=== PATIENT | female | born 1995 | race Caucasian/White ===

== ENCOUNTER 2018-02-21 11:56 | Observation (INO) | payer OTHER ==
[~2018-02-21] VITALS: Ht 165.1 cm; Wt 66.7 kg
[2018-02-21 12:08] VITALS: BP 141/79
[2018-02-21 13:02] LABS: CALCIUM 9.5 mg/dL (8.5-10.1); CREATININE 1.1 mg/dL (0.6-1.3); POTASSIUM 4.1 mmol/L (3.5-5.1)
[2018-02-21 13:05] LABS: ALBUMIN 4.1 g/dL (3.4-5.0); TOTAL BILIRUBIN 0.7 mg/dL (<0.1-1.0); TOTAL PROTEIN 8.1 g/dL (6.4-8.2)
[2018-02-21 13:10] LABS: ABSOLUTE BASOPHILS 0.1 thou/uL (0.0-0.2); ABSOLUTE EOSINOPHILS 0.1 thou/uL (0.0-0.7); ABSOLUTE LYMPHOCYTES 2.3 thou/uL (0.8-5.3); ABSOLUTE MONOCYTES 0.8 thou/uL (0.0-1.2); ABSOLUTE NEUTROPHILS 10.7 thou/uL (1.6-8.1); BASOPHILS 0.7 %; EOSINOPHILS 0.4 %; HEMATOCRIT 39.6 % (37.0-47.0); HEMOGLOBIN 13.2 gm/dL (12.0-15.0); LYMPHOCYTES 16.7 %; MCH 27.5 pg (26.0-34.0); MCHC 33.3 g/dL (28.0-37.0); MCV 82.6 fL (80.0-100.0); MONOCYTES 5.4 %; MPV 8.5 fl. (7.2-11.1); NUCLEATED RBCS 0 /100WBC; PLATELET COUNT* 130 thou/uL (150-400); POLYS 76.8 %; RDW-CV 12.9 % (10.5-14.5); WBC 13.9 thou/uL (4.0-11.0)
[2018-02-21 15:14] LABS: URINE BILIRUBIN NEGATIVE (Negative); URINE BLOOD NEGATIVE (Negative); URINE CLARITY CLEAR; URINE COLOR YELLOW; URINE GLUCOSE-RANDOM NEGATIVE (Negative); URINE KETONES 1+ (Negative); URINE LEUKOCYTES-REFLEX 1+ (Negative); URINE NITRITE-REFLEX NEGATIVE (Negative); URINE PROTEIN TRACE (Negative); URINE SPECIFIC GRAVITY 1.015 (1.005-1.030)
[2018-02-21 15:19] LABS: SQUAMOUS 4-10 Moderate /LPF (0-3)
[2018-02-21 15:20] LABS: BACTERIA-REFLEX None Seen /HPF (None Seen); CASTS None Seen /LPF (None Seen); CRYSTALS None Seen /LPF (None Seen); MUCUS None Seen strn/LPF (None Seen); URINE RBC 0-2 Rare /HPF (0-2); URINE WBC-REFLEX 0-5 Rare /HPF (0-5)
[2018-02-21 18:39] VITALS: BP 115/54
[2018-02-21 22:00] VITALS: BP 125/55
--- NOTE | 2018-02-21 22:48 | NUR ---
PT ARRIVED FROM PACU AT 2200. PT POT OP LAPROSCOPIC APPENDECTOMY. PT DENIES PAIN OR DISCOMFORT AT THIS TIME. PT'S FAMILY AT BEDSIDE ASSISTING WITH CARE. VITAL SIGNS WITHIN NORMAL LIMITS. CALL LIGHT IN REACH. PT DEMONSTRATED PROPER USE.
[2018-02-22 04:09] VITALS: BP 100/63
--- NOTE | 2018-02-22 07:01 | OP ---
[address] [address] OPERATIVE REPORT Name: RUBIO ALCAZAR Room: [address]RJúnior#: [id number] Admission: 02/21/18 Attend Phys: Ashlie Hernandes DO Discharge: Date of : 89 Report #: [id number] THIS REPORT FOR: //name// CC: Sam Hernandes [facility] physician/PCP DICTATED BY: Marco Soliz DO PREOPERATIVE DIAGNOSIS: Acute appendicitis. POSTOPERATIVE DIAGNOSIS: Acute appendicitis. SURGEON: Ashlie Hernandes DO RADIATION PROTECTION ENGINEER: Marco Soliz, PGY1 and Wesley Anna MS3. OPERATION PERFORMED: Laparoscopic appendectomy. ANESTHESIA: General. ESTIMATED BLOOD LOSS: 2. SPECIMENS REMOVED: Appendix. HISTORY OF PRESENT ILLNESS: The patient is a 22-year-old female presenting with complaint of right lower quadrant abdominal pain. Her pain initially began in the midepigastric area and began to become more localized over the period of time. She denied any nausea, vomiting, fevers, chills, any change in bowel habits. Last meal was around 7:00 a.m. Pain was slightly improved upon arrival to the ED. CT did confirm acute appendicitis. It was discussed with her that laparoscopic appendectomy would be recommended at this time. Risks and complications were discussed to include bleeding, infection, injury to surrounding structures, risk of needing an open procedure, risk of anesthesia. She acknowledged understanding of these risks and agreed to proceed with surgery. DESCRIPTION OF PROCEDURE: After consent was obtained, the patient was taken to the operating room. SCDs were placed on bilateral lower extremities. Ancef 2 g was given preoperatively. The patient was placed supine on the operating room table. General anesthesia was administrated and endotracheal intubation was successfully performed. The patient was then prepped and draped in the standard sterile fashion. A timeout was performed to confirm the patient and procedure. An infraumbilical incision was then made with an 11 blade scalpel. S retractors were used to bluntly dissect down to the fascia. Naldo's were used to grasp either side of the fascia and the fascia was elevated. Fascia was scored with a cautery and a Kate clamp was used to bluntly enter [place] [address] OPERATIVE REPORT Name: RUBIO ALCAZAR Room: [address]únior#: [id number] Admission: 02/21/18 Attend Phys: Ashlie Hernandes DO Discharge: Date of : 89 Report #: [id number] stitches of 0 Vicryl were placed on either side of the fascia. A 10 mm Tiom trocar was then entered into the abdomen. Insufflation was initiated successfully. Camera was then used to inspect the intra-abdominal contents. The appendix could be seen in the right lower quadrant with surrounding peritonitis. Another trocar was then placed in the suprapubic region under direct visualization and another one was placed in the left lower quadrant under direct visualization. The patient was then placed in Trendelenburg and rotated slightly to the left. Laparoscopic [place] was used to sweep the small bowel contents cephalad. The appendix was then clearly visualized coming off of the cecum. Some periappendiceal adhesions were taken down with hook cautery and hemostasis was ensured. [place] grasper was then used to create a small window into the mesoappendix just at the base of the appendix. A blue load 45 Endo-FLAVIA stapler was then inserted into the abdomen and placed across the base of the appendix, fired successfully. The appendix was regrasped and elevated and a white load Endo-FLAVIA stapler was inserted in the abdomen and stapled. The mesoappendix was then stapled successfully. The appendix was then placed into an EndoCatch bag. Staple line was inspected to ensure hemostasis and some of the insufflation was let out and again the staple line was inspected to ensure continued hemostasis. There was no evidence of any further bleeding. The suprapubic port and left lower quadrant port were removed under direct visualization. Hemostasis was ensured. Insufflation was let down and the infraumbilical trocar was removed along with the appendix in the bag. Once again, the fascia was grasped between 2 Kochers and elevated. One stitch of 0 Vicryl was placed along the fascia in a [id number] fashion. A 4-0 Monocryl was used to close all skin incisions in a subcuticular running fashion. All needle counts were correct, all sponge counts were correct and all instrument counts were correct. The patient tolerated the procedure well. Anesthesia was reversed and the patient was taken to PACU in a stable condition. <ELECTRONICALLY SIGNED> By: Ashlie Hernandes DO 02/22/18 0701 [id number] Hernandes DO /nt
--- NOTE | 2018-02-22 07:27 | NUR ---
PATIENT ARRIVED TO UNIT FROM PACU AT APPROXIMATELY 2210. PATIENT WAS ALERT AND ORIENTED. VSS ON 2L 02 VIA NASAL CANNULA. PATIENT HAS HAD NO C/O PAIN AND HAS SLEPT WELL THROUGHOUT THE NIGHT. IV IN RIGHT AC-SL. PATIENTS FATHER IS AT BEDSIDE. PATIENT INSTRUCTED TO USE CALL LIGHT WHEN NEEDING ASSISTANCE. HOURLY ROUNDS MADE. WILL CONTINUE WITH PLAN OF CARE AND NURSING TO MONITOR.
[2018-02-22 07:50] VITALS: BP 111/64
[2018-02-22] MEDS ORDERED: HYDROCODON-ACE1 EAC7 PO (09:04)
[2018-02-22 09:09] VITALS: BP 111/64
--- NOTE | 2018-02-22 11:50 | NUR ---
Pt to dc home with family support today. No dc needs or concerns expressed. SW to remain available if needed to assist with safe dc planning.
[2018-02-22 12:00] VITALS: BP 103/53
--- NOTE | 2018-02-22 14:27 | NUR ---
PATIENT A&OX4, ROOM AIR, IV RIGHT AC SALINE LOCK. IV D/C TODAY, CATHETER FULLY INTACT. UP WITH STAND BY ASSISTX1, STEADY GAIT. LAPROSCOPIC SITES REDRESSED TODAY, EDUCATION WITH PATIENT ON WHEN AND HOW DO REDRESS VERBALIZES UNDERSTANDING. REVIEWED DISCHARGE PAPERWORK WITH PATIENT WITH FAMILY MEMBER AT BEDSIDE. VERBALIZES IMPORTANCE OF PATIENT BEING ON SAME FLOOR BATHROOM AT HOME, THAT WAY NOT HAVING TO GO UP AND DOWN SEVERAL FLIGHTS OF STAIRS. PATIENT AND FAMILY VERBALIZES UNDERSTANDING WITH NO FURTHER QUESTIONS. HELPED PATIENT DRESS, ABLE TO DRESS SELF WITH NO HELP. LEFT UNIT AT 1425 VIA W/C WITH FAMILY AND NURSING STAFF ALL BELONGINGS TAKEN WITH PATIENT, NOTHING LEFT BEHIND. APPROPRIATE AND COOPORATIVE WITH CARE.
== END 2018-02-22 14:25 | disposition home or self-care (01) ==
LOC: M.ERS 11:56 → M.SUR 11:56 → M.ORTHSURG 18:36 → M.TBA 18:36 → M.ORTHSURG 22:09
PROVIDERS: Personal Emergency Response Attendant; ADMIT Surgery
DX: K35.80 Unspecified acute appendicitis (principal); R10.32 Left lower quadrant pain; D72.829 Elevated white blood cell count, unspecified; F32.9 Major depressive disorder, single episode, unspecified; Z90.89 Acquired absence of other organs

== ENCOUNTER 2018-03-16 00:09 | Emergency (ER) | payer OTHER ==
[~2018-03-16] VITALS: Ht 165.1 cm; Wt 65.3 kg
[~2018-03-16 00:09] MED LIST: HYDROCODON-ACE1 EAC7 PO
[2018-03-16 00:53] LABS: ABSOLUTE BASOPHILS 0.1 thou/uL (0.0-0.2); ABSOLUTE EOSINOPHILS 0.2 thou/uL (0.0-0.7); ABSOLUTE LYMPHOCYTES 2.4 thou/uL (0.8-5.3); ABSOLUTE MONOCYTES 0.6 thou/uL (0.0-1.2); ABSOLUTE NEUTROPHILS 5.1 thou/uL (1.6-8.1); BASOPHILS 0.7 %; EOSINOPHILS 2.5 %; HEMATOCRIT 37.9 % (37.0-47.0); HEMOGLOBIN 12.7 gm/dL (12.0-15.0); LYMPHOCYTES 29.1 %; MCH 27.8 pg (26.0-34.0); MCHC 33.4 g/dL (28.0-37.0); MCV 83.2 fL (80.0-100.0); MONOCYTES 6.7 %; MPV 8.5 fl. (7.2-11.1); NUCLEATED RBCS 0 /100WBC; PLATELET COUNT* 93 thou/uL (150-400); RBC 4.55 mil/uL (4.20-5.00); RDW-CV 12.7 % (10.5-14.5); WBC 8.4 thou/uL (4.0-11.0)
[2018-03-16 01:05] LABS: APTT 28.4 Seconds (25.0-31.3); INR 1.1; PROTIME 10.5 Seconds (9.20-11.50)
[2018-03-16 01:11] LABS: CREATININE 0.9 mg/dL (0.6-1.3); POTASSIUM 3.7 mmol/L (3.5-5.1)
[2018-03-16 01:16] LABS: TOTAL BILIRUBIN 0.4 mg/dL (<0.1-1.0); TOTAL PROTEIN 7.5 g/dL (6.4-8.2)
[2018-03-16] MEDS ORDERED: BACTRIM DS TAB1 EACH PO (01:40)
[2018-03-16 01:47] VITALS: BP 111/48
== END 2018-03-16 01:48 | disposition home or self-care (01) ==
LOC: M.ERS 00:09
PROVIDERS: Family Medicine
DX: S80.861A Insect bite (nonvenomous), right lower leg, initial encounter (principal); Z90.49 Acquired absence of other specified parts of digestive tract; W57.XXXA Bitten or stung by nonvenomous insect and other nonvenomous arthropods, initial encounter; Y93.89 Activity, other specified; Y92.89 Other specified places as the place of occurrence of the external cause; Y99.8 Other external cause status

== ENCOUNTER 2018-12-02 17:25 | Emergency (ER) | payer OTHER ==
[~2018-12-02] VITALS: Ht 162.6 cm; Wt 68.0 kg
[~2018-12-02 17:25] MED LIST changes: +BACTRIM DS TAB1 EACH PO
[2018-12-02 18:25] LABS: ABSOLUTE BASOPHILS 0.1 thou/uL (0.0-0.2); ABSOLUTE EOSINOPHILS 0.1 thou/uL (0.0-0.7); ABSOLUTE LYMPHOCYTES 1.2 thou/uL (0.8-5.3); ABSOLUTE MONOCYTES 0.8 thou/uL (0.0-1.2); ABSOLUTE NEUTROPHILS 6.3 thou/uL (1.6-8.1); BASOPHILS 0.7 %; EOSINOPHILS 0.6 %; HEMATOCRIT 41.1 % (37.0-47.0); HEMOGLOBIN 13.8 gm/dL (12.0-15.0); LYMPHOCYTES 14.5 %; MCH 27.8 pg (26.0-34.0); MCHC 33.6 g/dL (28.0-37.0); MCV 82.8 fL (80.0-100.0); MONOCYTES 9.1 %; MPV 7.9 fl. (7.2-11.1); NUCLEATED RBCS 0 /100WBC; PLATELET COUNT* 239 thou/uL (150-400); POLYS 75.1 %; RBC 4.96 mil/uL (4.20-5.00); RDW-CV 12.5 % (10.5-14.5); WBC 8.4 thou/uL (4.0-11.0)
[2018-12-02 18:32] LABS: CALCIUM 9.1 mg/dL (8.5-10.1); CREATININE 1.1 mg/dL (0.6-1.3); POTASSIUM 3.8 mmol/L (3.5-5.1)
[2018-12-02 18:36] LABS: ALBUMIN 4.2 g/dL (3.4-5.0); TOTAL BILIRUBIN 0.7 mg/dL (<0.1-1.0); TOTAL PROTEIN 8.1 g/dL (6.4-8.2)
[2018-12-02] MEDS ORDERED: ONDANSETRON HCL4 M2 PO (19:22)
[2018-12-02 19:33] LABS: INFLUENZA A ANTIGEN None Detected (None Detect); INFLUENZA B ANTIGEN None Detected (None Detect)
[2018-12-02 19:38] LABS: URINE BILIRUBIN NEGATIVE (Negative); URINE BLOOD 2+ (Negative); URINE CLARITY CLEAR; URINE COLOR YELLOW; URINE GLUCOSE-RANDOM NEGATIVE (Negative); URINE KETONES NEGATIVE (Negative); URINE LEUKOCYTES-REFLEX TRACE (Negative); URINE NITRITE-REFLEX NEGATIVE (Negative); URINE PROTEIN NEGATIVE (Negative); URINE SPECIFIC GRAVITY 1.025 (1.005-1.030); URINE UROBILINOGEN 0.2 E.U./dl (0.2-1.0)
[2018-12-02 19:43] LABS: SQUAMOUS 4-10 Moderate /LPF (0-3); URINE RBC 3-10 Few /HPF (0-2); URINE WBC-REFLEX 0-5 Rare /HPF (0-5)
[2018-12-02 19:44] LABS: CASTS None Seen /LPF (None Seen); CRYSTALS None Seen /LPF (None Seen); MUCUS >6 Heavy strn/LPF (None Seen)
[2018-12-02 19:54] VITALS: BP 99/53
== END 2018-12-02 19:55 | disposition home or self-care (01) ==
LOC: M.ERS 17:25
PROVIDERS: Physician Assistant
DX: J06.9 Acute upper respiratory infection, unspecified (principal); Z90.49 Acquired absence of other specified parts of digestive tract